=== PATIENT | male | born 1970 | race Caucasian/White ===

== ENCOUNTER 2021-02-21 22:15 | Emergency (ER) | payer BC ==
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
[2021-02-21] MEDS ORDERED: Sodium Chloride 0.9% 1,000 ML IV SCH (22:45)
--- NOTE | 2021-02-21 23:42 | CRLCR ---
For Patients: As a result of the Cures Act, medical imaging exams and procedure reports are released immediately into your electronic medical record. You may view this report before your referring provider. If you have questions, please contact your health care provider. INDICATION: Syncope TECHNIQUE: Chest radiograph 1 view COMPARISON: None FINDINGS: Mediastinum: The mediastinum is normal in appearance. The heart silhouette is normal in size and morphology. Lung: Both lungs are unremarkable in appearance with small lung volumes. No sign of pleural effusion seen. No pneumothorax is identified. Bone and Soft tissue: Unremarkable for age. IMPRESSION: 1. No acute cardiopulmonary disease is seen. Dictated by: Hi Irvin MD @ 02/21/2021 23:41:08 (Electronically Signed)
[2021-02-22 00:46] VITALS: BP 127/84; PULSE 73
== END 2021-02-22 01:37 | disposition home or self-care (01) ==
LOC: JP.ED 22:15
DX: R55 Syncope and collapse (principal); Z77.128 Contact with and (suspected) exposure to other hazards in the physical environment
CPT/HCPCS: 36415; 71045; 80053; 81001; 82375; 84484; 85025; 93005; 99284; J7030